=== PATIENT | female | born 1965 | race Two or more races ===

== ENCOUNTER 2022-06-14 07:37 | Day surgery (SDC) | payer OTHER ==
[~2022-06-14] VITALS: Ht 170.2 cm; Wt 88.5 kg
[~2022-06-14 07:37] MED LIST: AVALIDE PO
[2022-06-14] MEDS ORDERED: IBU800 MG PO (11:11)
== END 2022-06-14 14:10 | disposition home or self-care (01) ==
LOC: CIR.AMB 07:37 → ADM 10:00 → CIR.AMB 12:15
PROVIDERS: ATTEND Obstetrics & Gynecology Gynecology
DX: C54.1 Malignant neoplasm of endometrium (principal); Z20.822 Contact with and (suspected) exposure to COVID-19; I10 Essential (primary) hypertension

== ENCOUNTER 2023-05-05 10:47 | Outpatient (CLI) | payer OTHER ==
[~2023-05-05 10:47] MED LIST changes: +IBU800 MG PO
== END 2023-05-05 10:48 | disposition home or self-care (01) ==
LOC: NUCLEAR 10:47
PROVIDERS: ATTEND Surgery
DX: K76.0 Fatty (change of) liver, not elsewhere classified (principal)

== ENCOUNTER 2023-06-28 06:33 | Day surgery (SDC) | payer OTHER ==
[~2023-06-28] VITALS: Ht 170.2 cm; Wt 90.7 kg
== END 2023-06-28 14:35 | disposition home or self-care (01) ==
LOC: CIR.AMB 06:33
PROVIDERS: ATTEND Surgery
DX: K43.6 Other and unspecified ventral hernia with obstruction, without gangrene (principal); I10 Essential (primary) hypertension; Z20.822 Contact with and (suspected) exposure to COVID-19
CPT/HCPCS: 49594; C1781